=== PATIENT | male | born 1955 | race Two or more races ===

== ENCOUNTER 2023-09-17 06:40 | Day surgery (SDC) | payer OTHER | END 2023-09-17 13:35 | disposition home or self-care (01) | LOC: AMB-ENDOS 06:40 | PROVIDERS: ATTEND Surgery | DX: D12.3 Benign neoplasm of transverse colon (principal); D12.2 Benign neoplasm of ascending colon; K57.30 Diverticulosis of large intestine without perforation or abscess without bleeding; K92.1 Melena; Z20.822 Contact with and (suspected) exposure to COVID-19 ==